=== PATIENT | male | born 1970 | race Caucasian/White ===

== ENCOUNTER 2016-12-31 09:39 | Emergency (ER) | payer MEDICAID ==
[~2016-12-31] VITALS: Ht 167.6 cm; Wt 93.5 kg
[2016-12-31 09:50] VITALS: Ht 167.6 cm; Wt 93.5 kg
[2016-12-31] MEDS ORDERED: morphine 4 MG/ML VIAL IV STA (10:36)
[2016-12-31] MEDS ORDERED: ONDANSETRON 4 MG INJ IV STA (10:36)
[2016-12-31 10:57] LABS: BASOPHILS % 0.3 % (0.0-2.0); EOSINOPHILS # 0.1 10^3/ul (0.0-0.5); EOSINOPHILS % 0.7 % (0.0-7.0); HEMATOCRIT 43.1 % (42.0-52.0); HEMOGLOBIN 14.7 g/dl (14.0-18.0); LYMPHOCYTES # 2.8 10^3/ul (0.8-2.9); MEAN CORPUSCULAR HEMOGLOBIN 30.1 pg (29.0-33.0); MEAN CORPUSCULAR HGB CONC 34.1 g/dl (32.0-37.0); MEAN CORPUSCULAR VOLUME 88.3 fl (82.0-101.0); MEAN PLATELET VOLUME 9.8 fl (7.4-10.4); MONOCYTE # 0.6 10^3/ul (0.3-0.9); MONOCYTES % 6.3 % (0.0-11.0); NEUTROPHIL # 5.8 10^3/ul (1.6-7.5); NEUTROPHILS % 62.4 % (39.0-77.0); PLATELET COUNT 392 10^3/UL (140-415); RED BLOOD COUNT 4.88 10^6/ul (4.70-6.10); RED CELL DISTRIBUTION WIDTH 11.9 % (11.5-14.5); WHITE BLOOD COUNT 9.2 10^3/ul (4.8-10.8)
[2016-12-31 11:13] LABS: ALBUMIN 4.7 g/dl (3.3-4.9); ALBUMIN/GLOBULIN RATIO 1.34; BILIRUBIN,INDIRECT 0.2 mg/dl (0-1.1); BILIRUBIN,TOTAL 0.2 mg/dl (0.2-1.3); CALCIUM 9.9 mg/dl (8.4-10.2); CREATININE 0.77 mg/dl (0.61-1.24); TOTAL PROTEIN 8.2 g/dl (6.1-8.1)
[2016-12-31] MEDS ORDERED: SOD CHLORIDE 0.9% 100 ML ONE (11:30)
[2016-12-31] MEDS ORDERED: IOHEXOL 300MG/ML 150 ML BTL ONE (11:30)
--- NOTE | 2016-12-31 12:14 | RADRPT ---
PROCEDURE: CT Abdomen and Pelvis with contrast. CLINICAL INDICATION: Abdominal pain x 3 days. TECHNIQUE: CT scan of the abdomen and pelvis with contrast was performed on a multi-detector high- resolution CT scanner. The patient was scanned following the uncomplicated intravenous administrati on of 100 cc of Omnipaque 300. Coronal and sagittal reformatted images were obtained from the axial source images. Images were reviewed on a high-resolution PACS workstation. The total exam CTDI equa ls 16.54 mGy and the total exam DLP equals 995.49 mGy-cm. One or more of the following dose reduction techniques were used: Automated exposure control. Adjustment of the mA and/or kV according to patient size. Use of iterative reconstruction technique. COMPARISON: None. FINDINGS: CT abdomen: The lung bases are clear. The heart size is normal, without pericardial thickening or effusion. Th e liver is normal in size and density without focal mass or intrahepatic biliary dilatation. The sp va is normal in size and homogeneous in density. The stomach is partially collapsed, but is gross ly unremarkable. The pancreas as visualized is normal. The gallbladder and biliary tree are unrema rkable and there is no evidence for biliary dilatation. The adrenal glands are symmetric and normal . There is absence of the right kidney. There is compensatory enlargement of the left kidney. There is no urolithiasis. There is no hydronephrosis. The aorta is of normal caliber. Aortic vascular calcifications are present. There is no retroperit ramirez lymphadenopathy. The jens hepatis region is clear. The bowel and mesentery, as visualized, are equally unremarkable. CT pelvis: The small bowel loops situated within the pelvis are unremarkable. There is normal appendix. The pe lvic organs are normal. The pelvic sidewalls and inguinal regions are clear. The sigmoid colon and rectum are unremarkable. No mass, lymphadenopathy, or free fluid is seen. No acute inflammation i s seen. The bladder is normal.The surrounding osseous structures are unremarkable. No osteolytic o r osteoblastic lesion is detected. IMPRESSION: 1. No mass, lymphadenopathy, or focal acute inflammatory process is identified. 2. Normal appendix. 3. Absence of the right kidney. Compensatory enlargement of the left kidney. No urolithiasis. No hy dronephrosis. RPTAT: BB .Shelbie Perez MD, MD Date Time Electronically viewed and signed by .Shelbie Perez MD, MD on 12/31/2016 12:13 .O/
--- NOTE | 2016-12-31 12:18 | ERD ---
ER Documentation Chief Complaint Date/Time DATE: 12/31/16 TIME: 12:16 Chief Complaint pt bib self with c/o abd pain x 3 days HPI This is a 46-year-old male complains of abdominal pain for 3 days located in the left lower quadrant and infraumbilical region. The pain is crampy in nature. He also states she has had multiple rounds of watery diarrhea each day. Diarrhea is nonbloody. He has had no nausea vomiting no fever no chest pain shortness of breath no hematuria or dysuria. Patient states she has had these symptoms in the past before. No decreased urinary output ROS All systems reviewed and are negative except as per history of present illness. Allergies Allergies: Coded Allergies: No Known Allergy (Unverified , 12/31/16) PMhx/Soc Medical and Surgical Hx: pt denies Medical Hx, pt denies Surgical Hx History of Surgery: No Anesthesia Reaction: No Hx Neurological Disorder: No Hx Respiratory Disorders: No Hx Cardiac Disorders: No Hx Psychiatric Problems: No Hx Miscellaneous Medical Probl: No Hx Alcohol Use: No Hx Substance Use: No Hx Tobacco Use: No Smoking Status: Never smoker FmHx Family History: No coronary disease Physical Exam Vitals Vital Signs Date Time Temp Pulse Resp B/P Pulse Ox O2 Delivery O2 Flow Rate FiO2 12/31/16 09:50 98.1 98 18 172/94 99 Physical Exam Const: Well-developed, well-nourished Head: Atraumatic, normocephalic Eyes: Normal Conjunctiva, PERRLA, EOMI, normal sclera, no nystagmus ENT: Normal External Ears, Nose and Mouth, moist mucus membranes. Neck: Full range of motion. No meningismus, no lymphadenopathy. Resp: Clear to auscultation bilaterally, no wheezing, rhonchi, rales Cardio: Regular rate and rhythm, no murmurs, S1 S2 present Abd: Soft, infraumbilical left lower quadrant tenderness, non distended. Normal bowel sounds, no guarding or rebound, no pulsitile abdominal masses or bruits Skin: No petechiae or rashes, no ecchymosis , no maculopapular rash Back: No midline or flank tenderness Ext: No cyanosis, or edema, FROM x 4, normal inspection, neurovascularly intact x 4 Neur: Awake and alert, STR 5/5 x 4, sensation intact x 4, no focal findings, cerebellum intact Psych: Normal Mood and Affect Result Diagram: 12/31/16 1046 12/31/16 1046 Results 24 hrs Laboratory Tests Test 12/31/16 10:46 White Blood Count 9.210^3/ul Red Blood Count 4.8810^6/ul Hemoglobin 14.7g/dl Hematocrit 43.1% Mean Corpuscular Volume 88.3fl Mean Corpuscular Hemoglobin 30.1pg Mean Corpuscular Hemoglobin Concent 34.1g/dl Red Cell Distribution Width 11.9% Platelet Count 95203^3/UL Mean Platelet Volume 9.8fl Neutrophils % 62.4% Lymphocytes % 30.0% Monocytes % 6.3% Eosinophils % 0.7% Basophils % 0.3% Nucleated Red Blood Cells % 0.0/100WBC Neutrophils # 5.810^3/ul Lymphocytes # 2.810^3/ul Monocytes # 0.610^3/ul Eosinophils # 0.110^3/ul Basophils # 0.010^3/ul Nucleated Red Blood Cells # 0.010^3/ul Sodium Level 140mmol/L Potassium Level 4.0mmol/L Chloride Level 102mmol/L Carbon Dioxide Level 25mmol/L Anion Gap 17 Blood Urea Nitrogen 8mg/dl Creatinine 0.77mg/dl Glucose Level 99mg/dl Calcium Level 9.9mg/dl Total Bilirubin 0.2mg/dl Direct Bilirubin 0.00mg/dl Indirect Bilirubin 0.2mg/dl Aspartate Amino Transf (AST/SGOT) 21IU/L Alanine Aminotransferase (ALT/SGPT) 40IU/L Alkaline Phosphatase 110IU/L Total Protein 8.2g/dl Albumin 4.7g/dl Globulin 3.50g/dl Albumin/Globulin Ratio 1.34 Lipase 41U/L Current Medications Medications (Trade) Dose Ordered Sig/Aby Route PRN Reason Start Time Stop Time Status Last Admin Dose Admin Morphine Sulfate (morphine) 4 mg ONCE STAT IV 12/31/16 10:36 12/31/16 10:37 DC 12/31/16 11:01 Ondansetron HCl (Zofran Inj) 4 mg ONCE STAT IV 12/31/16 10:36 12/31/16 10:37 DC 12/31/16 11:01 IV Flush 10 ml 10 ml STK-MED ONCE .ROUTE 12/31/16 11:30 12/31/16 11:31 DC 12/31/16 11:46 Sodium Chloride (NS) 100 ml @ ud STK-MED ONCE .ROUTE 12/31/16 11:30 12/31/16 11:31 DC 12/31/16 11:47 Iohexol (Omnipaque 300mg/ ml) 150 ml STK-MED ONCE .ROUTE 12/31/16 11:30 12/31/16 11:31 DC 12/31/16 11:47 Procedures/MDM PROCEDURE: CT Abdomen and Pelvis with contrast. CLINICAL INDICATION: Abdominal pain x 3 days. TECHNIQUE: CT scan of the abdomen and pelvis with contrast was performed on a multi-detector high-resolution CT scanner. The patient was scanned following the uncomplicated intravenous administration of 100 cc of Omnipaque 300. Coronal and sagittal reformatted images were obtained from the axial source images. Images were reviewed on a high-resolution PACS workstation. The total exam CTDI equals 16.54 mGy and the total exam DLP equals 995.49 mGy-cm. One or more of the following dose reduction techniques were used: Automated exposure control. Adjustment of the mA and/or kV according to patient size. Use of iterative reconstruction technique. COMPARISON: None. FINDINGS: CT abdomen: The lung bases are clear. The heart size is normal, without pericardial thickening or effusion. The liver is normal in size and density without focal mass or intrahepatic biliary dilatation. The spleen is normal in size and homogeneous in density. The stomach is partially collapsed, but is grossly unremarkable. The pancreas as visualized is normal. The gallbladder and biliary tree are unremarkable and there is no evidence for biliary dilatation. The adrenal glands are symmetric and normal. There is absence of the right kidney. There is compensatory enlargement of the left kidney. There is no urolithiasis. There is no hydronephrosis. The aorta is of normal caliber. Aortic vascular calcifications are present. There is no retroperitoneal lymphadenopathy. The jens hepatis region is clear. The bowel and mesentery, as visualized, are equally unremarkable. CT pelvis: The small bowel loops situated within the pelvis are unremarkable. There is normal appendix. The pelvic organs are normal. The pelvic sidewalls and inguinal regions are clear. The sigmoid colon and rectum are unremarkable. No mass, lymphadenopathy, or free fluid is seen. No acute inflammation is seen. The bladder is normal.The surrounding osseous structures are unremarkable. No osteolytic or osteoblastic lesion is detected. IMPRESSION: 1. No mass, lymphadenopathy, or focal acute inflammatory process is identified. 2. Normal appendix. 3. Absence of the right kidney. Compensatory enlargement of the left kidney. No urolithiasis. No hydronephrosis. RPTAT: BB .Shelbie Perez MD, MD Date Time Electronically viewed and signed by .Shelbie Perez MD, on 12/31/2016 12:13 .O/ CC: ABBEY LOYOLA DO No evidence of diverticulitis or appendicitis. Will treat patient with a short course of Cipro may have infectious food source and antidiarrhea control. We will discharge home Departure Diagnosis: Primary Impression: Abdominal pain Abdominal location: left lower quadrant Qualified Code: R10.32 - Left lower quadrant pain Additional Impression: Diarrhea Diarrhea type: unspecified type Qualified Code: R19.7 - Diarrhea, unspecified type Condition: Stable ABBEY LOYOLA DO Dec 31, 2016 12:18
[2016-12-31] MEDS ORDERED: HYDR-906 PO (12:20)
[2016-12-31] MEDS ORDERED: DIPH1TAB PO (12:20)
[2016-12-31] MEDS ORDERED: CIPR500T4 PO (12:20)
[2016-12-31 12:38] VITALS: BP 136/80; PULSE 66; RESP 18; TEMP 98.1
== END 2016-12-31 12:39 | disposition home or self-care (01) ==
LOC: FTE 09:39
DX: R10.32 Left lower quadrant pain (principal); R19.7 Diarrhea, unspecified
CPT/HCPCS: 36415; 74177; 80053; 83690; 85025; 96374; 96375; J2270; J2405; Q9967; Z7502; Z7610

== ENCOUNTER 2017-01-19 11:24 | Emergency (ER) | payer MEDICAID ==
[~2017-01-19] VITALS: Ht 167.6 cm; Wt 92.5 kg
[~2017-01-19 11:24] MED LIST: CIPR500T4 PO; DIPH1TAB PO; HYDR-906 PO
[2017-01-19 11:27] VITALS: Ht 167.6 cm; Wt 92.5 kg
[2017-01-19] MEDS ORDERED: IBUPROFEN 600 MG TAB PO ONE (12:00)
--- NOTE | 2017-01-19 12:30 | RADRPT ---
PROCEDURE: CT brain without contrast CLINICAL INDICATION: Headache TECHNIQUE: CT of the brain without contrast performed on a multidetector CT scanner, with multiplan ar reformats. One or more of the following dose reduction techniques were used: Automated exposure control, adjustment in mA and / or kV according to patient size, use of iterative reconstructive jayna hnique. CTDIvol = 44 mGy; DLP = 720 mGy-cm. COMPARISON: None available FINDINGS: No acute intracranial hemorrhage is identified. No extra-axial fluid collection is seen. There is no mass effect. No midline shift is identified. The ventricles and sulci are mildly enlarged compatible with volume loss. The density of the brain appears unremarkable. Talbot-white differentiation is preserved. Calvarium and skull base are intact. Right sphenoid sinus fluid level is seen. IMPRESSION: 1. No evidence of acute intracranial pathology. 2. Mild volume loss. 3. Paranasal sinus disease described above. RPTAT: QQ .Edwardo Waters MD, Date Time Electronically viewed and signed by .Edwardo Waters MD, on 01/19/2017 12:29 .O/
[2017-01-19] MEDS ORDERED: AZIT250T94 PO (13:07)
[2017-01-19] MEDS ORDERED: IBUP-1542 PO (13:07)
--- NOTE | 2017-01-19 13:13 | ERD ---
ER Documentation Chief Complaint Date/Time DATE: 01/19/17 TIME: 13:10 Chief Complaint Complains of right ear pain x 2 days HPI This 46-year-old male complains of right-sided headache also has tenderness for last 3 days. In his left chest wall as well but denies any fevers, cough, sustained anterior chest pain, vomiting, weakness, additional complaints. Denies any history of trauma. ROS All systems reviewed and are negative except as per history of present illness. Medications Home Meds Active Scripts Azithromycin* (Zithromax*) 250 Mg Tablet, 250 MG PO .ZPACK DIRECTED, #6 TAB TAKE 500 MG (2 TABS) THE FIRST DAY THEN 250 MG (1 TAB) DAYS 2-5 Prov:ANGELICA CLARK MD 01/19/17 Ibuprofen* (Motrin*) 600 Mg Tab, 600 MG PO Q6, #20 TAB Prov:ANGELICA CLARK MD 01/19/17 Hydrocodone/Acetaminophen ([place] 5-325 Tablet) 1 Each Tablet, 1 TAB PO Q6H Y for PAIN, #20 TAB Prov:ABBEY LOYOLA DO 12/31/16 Diphenoxylate HCl/Atropine (Lomotil 2.5-0.025 mg Tablet) 1 Each Tablet, 1 TAB PO QID Y for DIARRHEA, #10 TAB Prov:ABBEY LOYOLA DO 12/31/16 Ciprofloxacin Hcl* (Ciprofloxacin Hcl*) 500 Mg Tablet, 500 MG PO BID for 5 Days , TAB Prov:ABBEY LOYOLA DO 12/31/16 Discontinued Scripts Ibuprofen* (Motrin*) 600 Mg Tab, 600 MG PO Q6, #20 TAB Prov:ANGELICA CLARK MD 01/19/17 Allergies Allergies: Coded Allergies: No Known Allergy (Unverified , 12/31/16) PMhx/Soc Medical and Surgical Hx: pt denies Medical Hx, pt denies Surgical Hx History of Surgery: No Anesthesia Reaction: No Hx Neurological Disorder: No Hx Respiratory Disorders: No Hx Cardiac Disorders: No Hx Psychiatric Problems: No Hx Miscellaneous Medical Probl: No Hx Alcohol Use: No Hx Substance Use: No Hx Tobacco Use: No Smoking Status: Never smoker Physical Exam Vitals Vital Signs Date Time Temp Pulse Resp B/P Pulse Ox O2 Delivery O2 Flow Rate FiO2 01/19/17 11:27 98.5 82 20 160/92 97 Physical Exam Const: []Alert, [id number]. Head: Atraumatic Eyes: Normal Conjunctiva. Eyes Nelida. ENT: Normal External Ears, Nose and Mouth.TMs normal. Neck: Full range of motion..~ No meningismus. Resp: Clear to auscultation bilaterally Cardio: Regular rate and rhythm, no murmurs Abd: Soft, non tender, non distended. Normal bowel sounds Skin: No petechiae or rashes Back: No midline or flank tenderness Ext: No cyanosis, or edema Neur: Awake and alertExam nerves II through XII grossly intact. No cerebellar signs and normal gait. Psych: Normal Mood and Affect Results 24 hrs Laboratory Tests Test 01/19/17 12:04 Bedside Glucose 97mg/dL Current Medications Medications (Trade) Dose Ordered Sig/Aby Route PRN Reason Start Time Stop Time Status Last Admin Dose Admin Ibuprofen (Motrin) 600 mg ONCE ONCE PO 01/19/17 12:00 01/19/17 12:01 DC 01/19/17 12:06 Procedures/MDM Patient presents with right-sided headache, tinnitus of uncertain etiology. EKG : Rate/Rhythm: [Normal Sinus Rhythm] rate equals 71 QRS, ST, T-waves: [No changes consistent w/ acute ischemia] Impression: [No evidence of ischemia or arrhythmia] CT brain shows sinusitis. Accu-Chek is normal. Patient is given ibuprofen for pain. Patient presents with headache and tenderness of uncertain etiology of it. There are signs of sinusitis we will treat for this. Patient will referred to ENT for further evaluation as well as primary care follow-up and return precautions. The patient was stable with no new complaints during the ER course. Clinically, there is no current evidence to suggest meningitis, sepsis, acute abdomen, pneumonia, acute coronary syndrome, pulmonary embolism, or any other emergent condition appearing to require further evaluation or hospitalization. The patient should certainly return for any new or worsening symptoms per the aftercare instructions. They should otherwise follow-up with her primary care doctor for reevaluation this week. Departure Diagnosis: Primary Impression: New onset tinnitus Laterality: right Qualified Code: H93.11 - New onset tinnitus of right ear Additional Impression: Headache Headache type: unspecified Headache chronicity pattern: unspecified pattern Intractability: not intractable Qualified Code: R51 - Nonintractable headache, unspecified chronicity pattern, unspecified headache type Condition: Stable Patient Instructions: Self-Care for Headaches, Tinnitus (Ringing in the Ears) Referrals: KHARI ODONNELL MD,ROXANNA Fernandez MD Additional Instructions: POSIBLEMENTE CANDICE SINUSITIS. Cheque otro vez con pascual doctor primario en el proximo galloway or regresa para mas o nueva simptomas.Va al pascual doctor/ specialista para mas evaluacon en el proximo semana. posiblemente necesita autorizado de pascual doctor primario para specialista. Regresa para fiebre, o mas o nueva simptomas. ANGELICA CLARK MD Jan 19, 2017 13:12
== END 2017-01-19 13:25 | disposition home or self-care (01) ==
LOC: FTE 11:24
DX: H93.11 Tinnitus, right ear (principal); R07.89 Other chest pain
CPT/HCPCS: 70450; 82962; Z7502; Z7610

== ENCOUNTER 2017-02-18 08:34 | Emergency (ER) | payer MEDICAID ==
[~2017-02-18] VITALS: Wt 90.9 kg
[~2017-02-18 08:34] MED LIST changes: +AZIT250T94 PO; +IBUP-1542 PO
[2017-02-18 09:56] LABS: BASOPHILS % 0.4 % (0.0-2.0); EOSINOPHILS % 0.4 % (0.0-7.0); HEMATOCRIT 42.2 % (42.0-52.0); HEMOGLOBIN 14.4 g/dl (14.0-18.0); LYMPHOCYTES # 2.5 10^3/ul (0.8-2.9); LYMPHOCYTES % 31.5 % (15.0-51.0); MEAN CORPUSCULAR HEMOGLOBIN 29.7 pg (29.0-33.0); MEAN CORPUSCULAR HGB CONC 34.1 g/dl (32.0-37.0); MEAN PLATELET VOLUME 10.1 fl (7.4-10.4); MONOCYTE # 0.5 10^3/ul (0.3-0.9); MONOCYTES % 6.4 % (0.0-11.0); NEUTROPHIL # 4.8 10^3/ul (1.6-7.5); PLATELET COUNT 308 10^3/UL (140-415); RED BLOOD COUNT 4.85 10^6/ul (4.70-6.10); RED CELL DISTRIBUTION WIDTH 12.1 % (11.5-14.5); WHITE BLOOD COUNT 7.9 10^3/ul (4.8-10.8)
[2017-02-18 10:06] LABS: ALBUMIN 4.8 g/dl (3.3-4.9); ALBUMIN/GLOBULIN RATIO 1.41; BILIRUBIN,INDIRECT 0.4 mg/dl (0-1.1); BILIRUBIN,TOTAL 0.4 mg/dl (0.2-1.3); CALCIUM 9.5 mg/dl (8.4-10.2); CREATININE 0.81 mg/dl (0.61-1.24); TOTAL PROTEIN 8.2 g/dl (6.1-8.1)
[2017-02-18] MEDS ORDERED: IBUP-1542 PO (10:56)
--- NOTE | 2017-02-18 10:59 | ERD ---
ER Documentation Chief Complaint Chief Complaint first 3 digit numbness on r. hand x1 wk. neg neuro def in triage. HPI This 46-year-old male presents with numbness in the tips of his right thumb, index and middle finger for the last week. 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 Denies history of trauma. He thought it may have been bitten by an insect but there was no redness or swelling. He has an additional complaint of some intermittent nonspecific dizziness but has normal gait and no history of weakness, fevers, chest pain or shortness of breath . ROS All systems reviewed and are negative except as per history of present illness. Medications Home Meds Active Scripts Ibuprofen* (Motrin*) 600 Mg Tab, 600 MG PO Q6, #15 TAB Prov:ANGELICA CLARK MD 02/18/17 Azithromycin* (Zithromax*) 250 Mg Tablet, 250 MG PO .ZPACK DIRECTED, #6 TAB TAKE 500 MG (2 TABS) THE FIRST DAY THEN 250 MG (1 TAB) DAYS 2-5 Prov:ANGELICA CLARK MD 01/19/17 Ibuprofen* (Motrin*) 600 Mg Tab, 600 MG PO Q6, #20 TAB Prov:ANGELICA CLARK MD 01/19/17 Hydrocodone/Acetaminophen ([place] 5-325 Tablet) 1 Each Tablet, 1 TAB PO Q6H Y for PAIN, #20 TAB Prov:ABBEY LOYOLA DO 12/31/16 Diphenoxylate HCl/Atropine (Lomotil 2.5-0.025 mg Tablet) 1 Each Tablet, 1 TAB PO QID Y for DIARRHEA, #10 TAB Prov:ABBEY LOYOLA DO 12/31/16 Ciprofloxacin Hcl* (Ciprofloxacin Hcl*) 500 Mg Tablet, 500 MG PO BID for 5 Days , TAB Prov:RAVINDER LOYOLASTJULIETTES AFelecia DO 12/31/16 Allergies Allergies: Coded Allergies: No Known Allergy (Unverified , 12/31/16) PMhx/Soc History of Surgery: No Anesthesia Reaction: No Hx Neurological Disorder: No Hx Respiratory Disorders: No Hx Cardiac Disorders: No Hx Psychiatric Problems: No Hx Miscellaneous Medical Probl: No Hx Alcohol Use: Yes Hx Substance Use: No Hx Tobacco Use: No Smoking Status: Never smoker Physical Exam Vitals Vital Signs Date Time Temp Pulse Resp B/P Pulse Ox O2 Delivery O2 Flow Rate FiO2 02/18/17 08:46 97.9 78 20 154/94 100 Physical Exam Const: [], [id number]. Head: Atraumatic Eyes: Normal Conjunctiva ENT: Normal External Ears, Nose and Mouth. Neck: Full range of motion..~ No meningismus. Resp: Clear to auscultation bilaterally Cardio: Regular rate and rhythm, no murmurs Abd: Soft, non tender, non distended. Normal bowel sounds Skin: No petechiae or rashes Back: No midline or flank tenderness Ext: No cyanosis, or edema Neur: Awake and alert Psych: Normal Mood and Affect Result Diagram: 02/18/1792902/18/17929 Results 24 hrs Laboratory Tests Test 02/18/17 09:30 White Blood Count 7.910^3/ul Red Blood Count 4.8510^6/ul Hemoglobin 14.4g/dl Hematocrit 42.2% Mean Corpuscular Volume 87.0fl Mean Corpuscular Hemoglobin 29.7pg Mean Corpuscular Hemoglobin Concent 34.1g/dl Red Cell Distribution Width 12.1% Platelet Count 59239^3/UL Mean Platelet Volume 10.1fl Neutrophils % 61.0% Lymphocytes % 31.5% Monocytes % 6.4% Eosinophils % 0.4% Basophils % 0.4% Nucleated Red Blood Cells % 0.0/100WBC Neutrophils # 4.810^3/ul Lymphocytes # 2.510^3/ul Monocytes # 0.510^3/ul Eosinophils # 0.010^3/ul Basophils # 0.010^3/ul Nucleated Red Blood Cells # 0.010^3/ul Sodium Level 138mmol/L Potassium Level 4.0mmol/L Chloride Level 100mmol/L Carbon Dioxide Level 25mmol/L Anion Gap 17 Blood Urea Nitrogen 10mg/dl Creatinine 0.81mg/dl Glucose Level 118mg/dl Calcium Level 9.5mg/dl Total Bilirubin 0.4mg/dl Direct Bilirubin 0.00mg/dl Indirect Bilirubin 0.4mg/dl Aspartate Amino Transf (AST/SGOT) 36IU/L Alanine Aminotransferase (ALT/SGPT) 52IU/L Alkaline Phosphatase 128IU/L Total Protein 8.2g/dl Albumin 4.8g/dl Globulin 3.40g/dl Albumin/Globulin Ratio 1.41 Procedures/MDM Presents with paresthesias of his right thumb index and middle at the tips. And additional complaint of dizziness. EKG: Rate/Rhythm: [Normal Sinus Rhythm]. Rate equals 78 QRS, ST, T-waves: [No changes consistent w/ acute ischemia] Impression: [No evidence of ischemia or arrhythmia] patient have normal EKG C and CMP showed no acute abnormalities. Patient has paresthesias which I suspect are due to using a nail gun at work. Signs and symptoms do not she is just deficit or central lesion. Is no evidence of bacterial infection. We treated with ibuprofen, further observation at home, primary care follow-up and return precautions. The patient was stable with no new complaints during the ER course. Clinically, there is no current evidence to suggest meningitis, sepsis, acute abdomen, pneumonia, acute coronary syndrome, pulmonary embolism, or any other emergent condition appearing to require further evaluation or hospitalization. The patient should certainly return for any new or worsening symptoms per the aftercare instructions. They should otherwise follow-up with her primary care doctor for reevaluation this week. Departure Diagnosis: Primary Impression: Dizziness Additional Impression: Paresthesia and pain of right extremity Condition: Stable Patient Instructions: Dizziness, Unk Cause, Paraesthesias Additional Instructions: Examines normal hoy. Cheque otro vez con pascual doctor primario en el proximo galloway or regresa para mas o nueva simptomas. ANGELICA CLARK MD Feb 18, 2017 10:59
== END 2017-02-18 11:29 | disposition home or self-care (01) ==
LOC: FTE 08:34
DX: R42 Dizziness and giddiness (principal); R20.2 Paresthesia of skin
CPT/HCPCS: 80053; 85025; 93005; Z7502